=== PATIENT | female | born 1995 | race Caucasian/White ===

== ENCOUNTER 2018-09-12 09:54 | Emergency (ER) | payer OTHER, SELFPAY ==
[2018-09-12 09:56] VITALS: BP 125/89; PULSE 98; RESP 18; TEMP 36.8; O2SAT 98; BMI 22.2
[2018-09-12] MEDS: SODIUM CHLORIDE 0.9% 1,000 ML 1000 ML IV (10:15)
[2018-09-12] MEDS: ONDANSETRON 4 MG/2 ML INJ IV (10:16)
[2018-09-12 10:29] LABS: Prothrombin Time 11.3 SECONDS (10.1-12.7)
[2018-09-12 10:31] LABS: PTT Partial Thromboplastin Tim 28 SECONDS (26.4-36.2)
[2018-09-12 10:34] LABS: Alanine Aminotransferase 35 IU/L (9-52); Albumin 4.4 g/dL (3.5-5.0); Albumin Globulin Ratio 1.5 (1.0-2.8); Alkaline Phosphatase 52 U/L (38-126); Aspartate Aminotransferase 32 IU/L (14-36); BUN Creatinine Ratio 15.6 (6-22); Bilirubin Total 0.4 mg/dL (0.2-1.3); Blood Urea Nitrogen 14 mg/dL (7-17); Calcium 9.1 mg/dL (8.4-10.2); Carbon Dioxide 24 mmol/L (22-32); Chloride 104 mmol/L (98-107); Estimated Glomerular Filt Rate > 60.0 mL/min (>60); Globulin 2.9 g/dL (1.7-4.1); Glucose 86 mg/dL (70-100); HEMOLYSIS < 15 (0-50); Lipase 54 U/L (23-300); Potassium 3.9 mmol/L (3.4-5.1); Sodium 138 mmol/L (137-145); Total Protein 7.3 g/dL (6.3-8.2)
[2018-09-12 10:35] LABS: Add Manual Diff / Slide Review NO; Basophils Absolute Auto 0 /uL (0-100); Basophils Percent Auto 0.4 % (0-2); Eosinophils Absolute Auto 100 /uL (0-450); Eosinophils Percent Auto 1.3 % (2-4); Hematocrit 41.6 % (36-46); Hemoglobin 14.1 g/dL (12.0-16.0); Lymphocytes Absolute Auto 2000 /uL (1100-4500); Mean Corpuscular HGB Conc 33.9 % (30-36); Mean Corpuscular Hemoglobin 30.5 PG (26-34); Monocytes Absolute Auto 500 /uL (0-900); Monocytes Percent Auto 7.5 % (3-14); Neutrophils Absolute Auto 3900 /uL (1500-7000); Neutrophils Percent Auto 59.8 % (50-75); Platelet Count 258 X10^3/uL (150-400); Red Blood Cell Count 4.62 X10^6/uL (4.0-5.2); Red Cell Distribution Width 13.1 % (11.6-14.8); White Blood Cell Count 6.5 X10^3/uL (4.5-11.0)
[2018-09-12 11:15] VITALS: BP 115/78; PULSE 78; RESP 15; O2SAT 98
[2018-09-12 11:19] VITALS: BP 115/78; PULSE 68; RESP 16; O2SAT 100
--- NOTE | 2018-09-12 11:20 | ED_ITS ---
HPI - Abdominal Pain General Chief Complaint: Abdominal Pain Stated Complaint: stomach pain Time Seen by Provider: 09/12/18 10:48 Source: patient Mode of arrival: ambulatory Limitations: no limitations History of Present Illness HPI narrative: Patient comes to the emergency department complaining of abdominal pain and diarrhea for 5 days. Patient states when the symptoms 1st started, she was also vomiting, and could not keep any food or water down. She states this lasted about 24 hours, now she has had watery diarrhea for the several days since. She states that she is currently having about 3 episodes of diarrhea per day. She has had no solid stools. Patient states that she has been able to eat and drink some, but her appetite is decreased. This morning after eating, she states she vomited. Patient states that she has had somewhat of a runny nose and cough which she thinks may have started at the same time as her vomiting. No other complaints at this time. She states she has not had any fevers. Chills. No dysuria. No back pain. Patient states she is concerned because she has diarrhea ?about 50% of the time?, even when she is not ill. She is concerned that something else may be wrong. She states that her abdominal pain is left-sided and involves the upper and lower quadrants. Her primary concern, however, is diarrhea. Related Data Home Medications Medication Instructions Recorded Confirmed biotin 1 cap PO QNOON 09/12/18 09/12/18 cholecalciferol (vitamin D3) 1 tab PO QNOON 09/12/18 09/12/18 desogestrel-ethinyl estradiol 1 tab PO QPM 09/12/18 09/12/18 [Nathan] loratadine 10 mg tablet 10 mg PO QNOON 09/12/18 09/12/18 omega-3 fatty acids 1 cap PO QNOON 09/12/18 09/12/18 rizatriptan 5 mg PO PRN PRN 09/12/18 09/12/18 vitamin B complex 1 tab PO QNOON 09/12/18 09/12/18 Previous Rx's Medication Instructions Recorded ondansetron 4 mg PO QID PRN #10 tab 09/12/18 Allergies Allergy/AdvReac Type Severity Reaction Status Date / Time adhesive tape Allergy Mild red and Verified 09/12/18 10:00 bumpy rash Review of Systems Constitutional Denies chills, Denies fever(s), Denies lethargy and Denies weakness Eyes Denies change in vision, Denies eye discharge, Denies irritation and Denies loss of vision ENT Ears, Nose, Mouth, and Throat: Denies change in voice, Denies neck pain and Denies sore throat Cardiovascular Denies chest pain, Denies irregular heart rhythm, Denies lightheadedness, Denies palpitations, Denies dyspnea, Denies dyspnea on exertion and Denies orthopnea Respiratory Denies cough, Denies dyspnea, Denies dyspnea on exertion and Denies wheezing Gastrointestinal Gastrointestinal: Reports abdominal pain, Denies change in bowel habits, Reports diarrhea, Reports nausea and Reports vomiting Genitourinary Denies hematuria, Denies flank pain, Denies urinary incontinence and Denies urinary urgency Musculoskeletal Denies neck pain Integumentary/Breasts Denies pruritus, Denies erythema, Denies rash and Denies wounds Neurologic Denies confusion, Denies loss of vision and Denies weakness Psychiatric Denies anxiety, Denies confusion, Denies depression, Denies homicidal ideation and Denies suicidal ideation Endocrine Denies palpitations Hematologic/Lymphatic Denies easy bruising Allergic/Immunologic Denies wheezing [facility] Medical History Healthy adult (Acute) Surgical History No pertinent past surgical history (Acute) Social History Smoking Status: Current some day smoker Social History Smoking Status: Current some day smoker Exam Initial Vital Signs Initial Vital Signs: Vital Signs Temperature 98.3 F 09/12/18 09:56 Pulse Rate 98 H 09/12/18 09:56 Respiratory Rate 18 09/12/18 09:56 Blood Pressure 125/89 09/12/18 09:56 Pulse Oximetry 98 09/12/18 09:56 Const General: cooperative and well developed Nutritional Appearance: well nourished Orientation: alert, awake, oriented x3 and not confused HENMT Head: normocephalic and atraumatic Ears: external ears normal and TM's normal bilaterally Nose: external nose normal and No nasal discharge Face and sinus: sinuses nontender, face symmetric, no sinus tenderness and No dry mucous membranes Mouth: oral mucosae normal and moist mucous membranes Teeth and gingiva: dentition normal Throat: tonsils normal and uvula midline Eyes General: appearance normal, both eyes and all related structures Eyelids: eyelids normal Conjunctivae: conjunctivae normal Sclera: sclerae normal Pupils: PERRL EOM: EOM intact bilaterally Neck Neck: normal visual inspection, trachea midline, No lymphadenopathy, No midline deformity and No JVD Lymphatic: No lymphedema Chest Chest: normal inspection of the chest Resp Effort & Inspection: normal respiratory effort, able to speak in complete sentences, no respiratory distress and no use of accessory muscles Auscultation: clear to auscultation bilaterally, no rales, no rhonchi and no wheezes Cardio Rate: regular rate Rhythm: regular rhythm Heart Sounds: no click, no gallops, no murmurs and no rubs Pulses: normal peripheral pulses GI Inspection: non-distended Palpation: soft, no hepatosplenomegaly, No guarding, No pulsatile mass and tender (Mild, left upper and lower quadrants and left flank) Auscultation: normal bowel sounds Back/Spine/Pelvis Back: CVA tenderness (Moderate, left) Cervical Spine: cervical ROM normal and No pain with cervical ROM Thoracic/Lumbar Spine: thoracic and lumbar spine normal to inspection Skin General: no rashes or lesions noted, No jaundice and No petechiae Neuro General: alert, oriented x3, gait normal and no focal motor deficits Speech: speech normal Extrem General: full ROM, no clubbing, cyanosis or edema, no pedal edema and no calf tenderness Psych Appearance: well kempt Mental Status: mental status grossly normal Attitude: cooperative Thought Content: normal and suicidality Judgment: judgment good Course Course Narrative: Patient was given a L of IV fluid and Zofran. She was worked up with laboratory studies, which were negative, and urinalysis. I discussed with the patient that there is no evidence of an acute, emergent issue at this time, but that she does need to follow up with her primary doctor to discuss getting set up for colonoscopy and endoscopy to see what more may be going on. We have discussed symptomatic management home, as well as the usual indications for return. Patient expresses understanding, and agrees with the plan. Orders Ordered: Discontinued Medications Sodium Chloride (Normal Saline 0.9%) 1,000 mls @ 1,000 mls/hr IV BOLUS PRN PRN Reason: Fluid replacement Last Infusion: 09/12/18 11:08 Dose: 0 mls/hr Admin: 09/12/18 10:15 Dose: 1,000 mls/hr Ondansetron HCl (Zofran) 4 mg IV NOW ONE Stop: 09/12/18 10:03 Last Admin: 09/12/18 10:16 Dose: 4 mg Vital Signs - 8 hr 09/12/18 09:56 Temperature 98.3 F Pulse Rate 98 H Respiratory Rate 18 Blood Pressure 125/89 Pulse Oximetry 98 MDM - Abdominal Pain Medical Records Attestation: I reviewed the patient's medical records. Lab Data Attestation: I reviewed the patient's lab results. Result diagrams: 09/12/18 10:10 09/12/18 10:10 Lab Results 09/12/18 09/12/18 09/12/18 Range/Units 10:10 10:10 10:10 WBC 6.5 (4.5-11.0) X10^3/uL RBC 4.62 (4.0-5.2) X10^6/uL Hgb 14.1 (12.0-16.0) g/dL Hct 41.6 (36-46) % MCV 90.0 (80-100) fL MCH 30.5 (26-34) PG MCHC 33.9 (30-36) % RDW 13.1 (11.6-14.8) % Plt Count 258 (150-400) X10^3/uL Neut % (Auto) 59.8 (50-75) % Lymph % (Auto) 31.0 (25-40) % Josephine % (Auto) 7.5 (3-14) % Eos % (Auto) 1.3 L (2-4) % Baso % (Auto) 0.4 (0-2) % Neut # (Auto) 3900 (3308-1156) /uL Lymph # (Auto) 2000 (6805-1684) /uL Josephine # (Auto) 500 (0-900) /uL Eos # (Auto) 100 (0-450) /uL Baso # (Auto) 0 (0-100) /uL PT 11.3 (10.1-12.7) SECONDS INR 1.0 (0.9-1.3) APTT 28 (26.4-36.2) SECONDS Sodium 138 (137-145) mmol/L Potassium 3.9 (3.4-5.1) mmol/L Chloride 104 (98-107) mmol/L Carbon Dioxide 24 (22-32) mmol/L BUN 14 (7-17) mg/dL Creatinine 0.90 (0.52-1.04) mg/dL Estimated GFR > 60.0 (>60) mL/min BUN/Creatinine Ratio 15.6 (6-22) Glucose 86 (70-100) mg/dL Calcium 9.1 (8.4-10.2) mg/dL Total Bilirubin 0.4 (0.2-1.3) mg/dL AST 32 (14-36) IU/L ALT 35 (9-52) IU/L Alkaline Phosphatase 52 (38-126) U/L Total Protein 7.3 (6.3-8.2) g/dL Albumin 4.4 (3.5-5.0) g/dL Globulin 2.9 (1.7-4.1) g/dL Albumin/Globulin Ratio 1.5 (1.0-2.8) Lipase 54 (23-300) U/L Urine RBC (0-5/HPF) Urine WBC (0-5/HPF) Ur Squamous Epith Cells (0-5/HPF) Urine Bacteria (None) Ur Culture Indicated? 09/12/18 Range/Units 11:19 WBC (4.5-11.0) X10^3/uL RBC (4.0-5.2) X10^6/uL Hgb (12.0-16.0) g/dL Hct (36-46) % MCV (80-100) fL MCH (26-34) PG MCHC (30-36) % RDW (11.6-14.8) % Plt Count (150-400) X10^3/uL Neut % (Auto) (50-75) % Lymph % (Auto) (25-40) % Josephine % (Auto) (3-14) % Eos % (Auto) (2-4) % Baso % (Auto) (0-2) % Neut # (Auto) (5225-7011) /uL Lymph # (Auto) (9981-8166) /uL Josephine # (Auto) (0-900) /uL Eos # (Auto) (0-450) /uL Baso # (Auto) (0-100) /uL PT (10.1-12.7) SECONDS INR (0.9-1.3) APTT (26.4-36.2) SECONDS Sodium (137-145) mmol/L Potassium (3.4-5.1) mmol/L Chloride (98-107) mmol/L Carbon Dioxide (22-32) mmol/L BUN (7-17) mg/dL Creatinine (0.52-1.04) mg/dL Estimated GFR (>60) mL/min BUN/Creatinine Ratio (6-22) Glucose (70-100) mg/dL Calcium (8.4-10.2) mg/dL Total Bilirubin (0.2-1.3) mg/dL AST (14-36) IU/L ALT (9-52) IU/L Alkaline Phosphatase (38-126) U/L Total Protein (6.3-8.2) g/dL Albumin (3.5-5.0) g/dL Globulin (1.7-4.1) g/dL Albumin/Globulin Ratio (1.0-2.8) Lipase (23-300) U/L Urine RBC None seen (0-5/HPF) Urine WBC 0-1/hpf (0-5/HPF) Ur Squamous Epith Cells None seen (0-5/HPF) Urine Bacteria None seen (None) Ur Culture Indicated? Specimen cultured Point of care testing: Point of Care Testing Test Results Negative Urine Dip Bedside Urine Glucose Negative Bedside Urine Bilirubin - Negative Bedside Urine Ketone - Negative Urine Specific [place] 1.015 Bedside Urine Occult Blood - Negative Bedside Urine pH 7.0 Bedside Urine Protein - Negative Bedside Urine Urobilinogen - Negative Bedside Urine Nitrite - Negative Bedside Urine Leukocytes + 70 Esterase Discharge Plan Departure Patient Disposition: Home Clinical Impression: Gastroenteritis Discharge Date/Time: 09/12/18 12:21 Interventions: ED Discharge Assessment Last Done: 09/12/18 12:21 Instructions: DI for Viral Gastroenteritis -- Adult Activity Restrictions/Additional Instructions: Your labs and urinalysis look good today. There is no evidence of an emergent cause of her symptoms, and the symptoms are most likely viral in nature. However, since you have been having some diarrhea in between episodes of illness, it may be helpful to speak with the gastroenterology clinic about setting and follow-up, to be sure no other issues are underlying. Prescriptions: New ondansetron 4 mg tablet,disintegrating 4 mg PO QID PRN (Reason: nausea and vomiting) Qty: 10 RF: 0 No Action loratadine 10 mg Tablet 10 mg PO QNOON RF: 0 cholecalciferol (vitamin D3) 1 tab PO QNOON RF: 0 omega-3 fatty acids 1 cap PO QNOON RF: 0 vitamin B complex 1 tab PO QNOON RF: 0 desogestrel-ethinyl estradiol [Nathan] 0.15-0.03 mg Tablet 1 tab PO QPM RF: 0 rizatriptan 5 mg Tablet 5 mg PO PRN PRN (Reason: Headache) RF: 0 biotin 1 cap PO QNOON RF: 0 Referrals: [facility] [Provider Group]
[2018-09-12 11:30] LABS: Bacteria Urine None Seen; RBC Urine None Seen (0-5/HPF)
[2018-09-12 11:45] LABS: Culture Indicated Urine Specimen Cultured; Squamous Epithelial Cell Urine None Seen (0-5/HPF); WBC Urine 0-1/HPF (0-5/HPF)
[2018-09-12 12:00] VITALS: BP 112/72; PULSE 74; RESP 15; O2SAT 98
== END 2018-09-12 12:21 | disposition home or self-care (01) ==
PROVIDERS: Emergency Provider Emergency Medicine
DX: K52.9 Noninfective gastroenteritis and colitis, unspecified (principal); R11.11 Vomiting without nausea
CPT/HCPCS: 36591; 80053; 81003; 81015; 81025; 83690; 85025; 85610; 85730; 87086; 96361; 96374; 99284; J2405